=== PATIENT | male | born 1980 | race Caucasian/White ===

== ENCOUNTER 2016-07-15 09:20 | Emergency (ER) | payer OTHER ==
[~2016-07-15] VITALS: Ht 170.2 cm; Wt 81.6 kg
[2016-07-15 09:24] VITALS: BP 148/75
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
[2016-07-16] MEDS ORDERED: ZOFRAN ODT4 M1 SL (12:33)
[2016-07-16] MEDS ORDERED: ULTRAM50 M1 PO (12:33)
[2016-07-16] MEDS ORDERED: TRANSDERM-SCOP1 EACH TOP (12:33)
== END 2016-07-15 09:54 ==
LOC: ERH 09:20
DX: S06.0X0A Concussion without loss of consciousness, initial encounter (principal); V47.0XXA Car driver injured in collision with fixed or stationary object in nontraffic accident, initial encounter; Y93.89 Activity, other specified; Y92.39 Other specified sports and athletic area as the place of occurrence of the external cause

== ENCOUNTER 2016-07-16 09:54 | Emergency (ER) | payer OTHER ==
[~2016-07-16] VITALS: Ht 170.2 cm; Wt 81.6 kg
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
[2016-07-16] MEDS ORDERED: TRANSDERM-SCOP1 EACH TOP (12:33)
[2016-07-16] MEDS ORDERED: ULTRAM50 M1 PO (12:33)
[2016-07-16] MEDS ORDERED: ZOFRAN ODT4 M1 SL (12:33)
[2016-07-16 12:37] VITALS: BP 120/80
== END 2016-07-16 13:01 ==
LOC: ERH 09:54
DX: F07.81 Postconcussional syndrome (principal); G44.309 Post-traumatic headache, unspecified, not intractable; V89.2XXA Person injured in unspecified motor-vehicle accident, traffic, initial encounter; Y92.9 Unspecified place or not applicable
CPT/HCPCS: J3101

== ENCOUNTER 2016-07-19 12:26 | Emergency (ER) | payer OTHER ==
[~2016-07-19] VITALS: Ht 171.4 cm; Wt 81.6 kg
[~2016-07-19 12:26] MED LIST: TRANSDERM-SCOP1 EACH TOP; ULTRAM50 M1 PO; ZOFRAN ODT4 M1 SL
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
[2016-07-19 15:56] VITALS: BP 128/70
== END 2016-07-19 15:58 ==
LOC: ERH 12:26
DX: F07.81 Postconcussional syndrome (principal)
CPT/HCPCS: 93005; 93010